=== PATIENT | male | born 1950 | race Caucasian/White ===

== ENCOUNTER 2022-08-15 18:01 | Emergency (ER) | payer OTHER ==
[~2022-08-15] VITALS: Ht 162.6 cm; Wt 73.0 kg
[2022-08-15 18:46] VITALS: BP 150/63
[2022-08-15] MEDS ORDERED: MUPIROCIN 2% OINT 15gm or 22gm TOP ONE (19:15)
== END 2022-08-15 19:36 | disposition home or self-care (01) ==
LOC: ER 18:04
DX: S00.81XA Abrasion of other part of head, initial encounter (principal); W10.8XXA Fall (on) (from) other stairs and steps, initial encounter; Y93.89 Activity, other specified; Y92.89 Other specified places as the place of occurrence of the external cause; Y99.8 Other external cause status